=== PATIENT | male | born 1970 | race Caucasian/White ===

== ENCOUNTER 2023-11-23 12:46 | Day surgery (SDC) | payer BC ==
[~2023-11-23] VITALS: Ht 172.7 cm; Wt 92.1 kg
[~2023-11-23 12:46] MED LIST: Lactated Ringer's 1,000 ML IV ONE; propofoL 50 ML IV ONE
[2023-11-23] MEDS ORDERED: ATOR10 (13:01)
[2023-11-23] MEDS ORDERED: ASPI81CH (13:02)
[2023-11-23] MEDS ORDERED: AMLO5 (13:02)
[2023-11-23] MEDS ORDERED: LOSARTAN-HCTZ1 EACH (13:03)
[2023-11-23] MEDS ORDERED: Lactated Ringer's 1,000 ML IV ONE (13:25)
[2023-11-23] MEDS ORDERED: Lidocaine HCl 2% Jelly 120MG/6ML SYR (20MG PER ML) ONE (14:12)
[2023-11-23 14:57] VITALS: BP 122/85
== END 2023-11-23 14:50 | disposition home or self-care (01) ==
LOC: ORSCSDS 12:46
PROVIDERS: Surgery
PROC: 0DBN8ZX Excision of Sigmoid Colon, Via Natural or Artificial Opening Endoscopic, Diagnostic (ICD-10-PCS; principal; 2023-11-23 13:45)
DX: Z12.11 Encounter for screening for malignant neoplasm of colon (principal); R19.5 Other fecal abnormalities; K63.5 Polyp of colon; K60.2 Anal fissure, unspecified; K55.20 Angiodysplasia of colon without hemorrhage; I10 Essential (primary) hypertension; E78.1 Pure hyperglyceridemia; Z79.82 Long term (current) use of aspirin; Z79.899 Other long term (current) drug therapy
CPT/HCPCS: 88305; A9270; J2704; J7120